=== PATIENT | female | born 1945 | race Caucasian/White ===

== ENCOUNTER 2024-12-23 09:10 | Emergency (ER) | payer MEDICARE ==
[2024-12-23 10:10] LABS: #Basophils Less than 0.03 10x3/uL (0.0-0.2); #Eosinophils 0.06 10x3/uL (0.0-0.5); #Monocytes 0.34 10x3/uL (0.0-1.1); #Neutrophils 5.52 10x3/uL (1.5-8.4); %Basophils 0.3 % (0.0-2.0); %Eosinophils 0.9 % (0.0-6.0); %Lymphocytes 13.1 % (18.0-47.0); %Monocytes 5.0 % (0.0-10.0); %Neutrophils 80.4 % (40.0-75.0); Hematocrit 34.2 % (34.9-44.5); Hemoglobin 11.2 g/dL (12.0-15.5); Mean Corpuscular Hemoglobin 30.5 pg (27.0-33.0); Mean Corpuscular Volume 93.2 fL (81.6-98.3); Platelet Count 288 10x3/uL (150-450); Red Blood Cell (RBC) Count 3.67 10x6/uL (3.90-5.03); White Blood Cell (WBC) Count 6.86 10x3/uL (3.5-10.5)
[2024-12-23] MEDS ORDERED: Ketorolac Tromethamine 30 MG (1 mL) VIAL ONE (10:29)
[2024-12-23 10:32] LABS: ALT (SGPT) Less than 7 U/L (Less than 34); AST (SGOT) 16 U/L (11-34); Albumin 3.4 g/dL (3.1-4.5); Alkaline Phosphatase 59 U/L (40-110); Anion Gap 18 mmol/L (10-20); BUN (Urea Nitrogen) 16 mg/dL (9.8-20.1); Bilirubin, Total 1.0 mg/dL (0.3-1.2); CK (CPK) 21 U/L (29-168); Calc. Creatinine Clearance 0 mL/min (70-130); Calcium 8.8 mg/dL (7.8-10.44); Carbon Dioxide 21 mmol/L (23-31); Chloride 102 mmol/L (98-107); Globulin 3.8 g/dL (2.4-3.5); Glucose 94 mg/dL (83-110); Potassium 4.0 mmol/L (3.5-5.1); Sodium 137 mmol/L (136-145); Troponin I Less than 0.010 ng/mL (< 0.028)
[2024-12-23] MEDS ORDERED: diphenhydrAMINE 50 MG/ML VIAL ONE (10:48)
[2024-12-23] MEDS ORDERED: Famotidine/PF 20 mg/2ml Vial ONE (10:49)
[2024-12-23] MEDS ORDERED: Iopamidol 370 76% 100 ML VIAL ONE (12:09)
== END 2024-12-23 13:41 | disposition home or self-care (01) ==
LOC: CSHERS 09:10
DX: R07.89 Other chest pain (principal); M25.59 Pain in other specified joint; I10 Essential (primary) hypertension
CPT/HCPCS: 71045; 71275; 80053; 82550; 83880; 84484; 85025; 85379; 86140; 93005; J1200; J1308; J1885; J2270; J2919